=== PATIENT | female | born 1975 | race Caucasian/White ===

== ENCOUNTER → 2019-09-20 | Outpatient (CLI) | payer MEDICAID | LOC: LL.US 14:56 | PROVIDERS: ATTEND Physician Assistant | DX: E28.2 Polycystic ovarian syndrome (principal); Z90.710 Acquired absence of both cervix and uterus | CPT/HCPCS: 76830; 76856 ==

== ENCOUNTER 2019-11-16 02:20 | Emergency (ER) | payer MEDICAID ==
[2019-11-16] MEDS ORDERED: Famotidine 20 MG/2 ML SDV IVPUSH ONE (02:27)
[2019-11-16] MEDS ORDERED: Sodium Chloride 0.9% 10 ML Syringe FLUSH PRN (02:27)
--- NOTE | 2019-11-16 02:27 | EDM.PDOC ---
ED HPI GENERAL MEDICAL PROBLEM - General Chief Complaint: Neurological Problem Stated Complaint: FACIAL DROOP, SLURRED SPEECH Time Seen by Provider: 11/16/19 02:26 Source of Information: Reports: Patient, EMS, Old Records ([facility] EMR. No paper hospital chart available.), Other ([facility] EMR). Denies : EMS Notes Reviewed (Not available at time of dictation) History Limitations: Reports: Other (Altered speech) - History of Present Illness INITIAL COMMENTS - FREE TEXT/NARRATIVE: The patient was brought to the emergency room via ambulance with hogshead mat assembler accompaniment with a stroke code called by the hogshead mat assembler shortly prior to the patient's arrival to this facility. She is a somewhat poor historian secondary to her speech deficit. Note that at about 01:30 hours this evening the patient had a sudden onset 9/10 right sided occipital headache associated with right facial numbness, paresthesias, and right facial hemiparesis associated with 9/ 10 right superior lip discomfort. The patient did have a right occipital nerve block at [facility] on 11/15 with no immediate complications from that procedure. Patient does have stable chronic diplopia by her history with no other visual changes or previous aura. The patient was evaluated at [facility] on 11/15 with positive EEG in the right frontotemporal region. No previous seizure activity prior to her arrival to our facility, however. The patient denies any chest pain/pressure, heart flutter, dizziness, orthostasis, orthopnea, diaphoresis, recent decreased exercise tolerance, or any other anginal-type symptoms. No recent history of abdominal pain, heartburn, nausea, diarrhea, melena, gross hematochezia, or any food intolerance, including fatty foods, etc.. The patient also denies any recent fever, wheezing, dyspnea, etc., although she has had some mild nasal drainage and URI symptoms during the last couple of days. Onset: Today, Sudden Onset Date: 11/16/19 Onset Time: 01:30 Duration: Improving Location: Reports: Head (As above), Face (As above). Denies: Neck, Chest, Abdomen, Back, Upper Extremity, Left, Upper Extremity, Right, Radiates to Quality: Reports: Same as Previous Episode, Throbbing Improves with: Reports: None Worsens with: Reports: None Context: Reports: Other (As above). Denies: Sick Contact, Trauma Associated Symptoms: Reports: Cough, Headaches, Weakness (Right facial). Denies : Confusion, Chest Pain, cough w sputum, Diaphoresis, Fever/Chills, Loss of Appetite, Malaise, Nausea/Vomiting, Seizure, Shortness of Breath, Syncope Treatments TOURIST GUIDE: Reports: Other (see below) (None) - Related Data Allergies Allergy/AdvReac Type Severity Reaction Status Date / Time acetaminophen Allergy Cannot Verified 11/16/19 02:52 Remember adhesive Allergy Cannot Verified 11/16/19 02:52 Remember adhesive tape Allergy Cannot Verified 11/16/19 02:52 Remember amoxicillin Allergy Cannot Verified 11/16/19 02:52 Remember bupropion Allergy Cannot Verified 11/16/19 02:52 Remember cephalexin [From Keflex] Allergy Cannot Verified 11/16/19 02:52 Remember ciprofloxacin Allergy Cannot Verified 03/04/19 23:03 Remember doxycycline Allergy Cannot Verified 03/04/19 23:03 Remember gabapentin [From Neurontin] Allergy Cannot Verified 11/16/19 02:52 Remember hydrocodone Allergy Cannot Verified 11/16/19 02:52 Remember ibuprofen Allergy Cannot Verified 11/16/19 02:52 Remember oxycodone [From Percocet] Allergy Cannot Verified 11/16/19 02:52 Remember parsley Allergy Cannot Verified 11/16/19 02:52 Remember peanut Allergy Cannot Verified 11/16/19 02:52 Remember silver Allergy Hives Verified 11/16/19 02:52 [From Tegaderm AG Mesh] tizanidine Allergy Cannot Verified 11/16/19 02:52 Remember tramadol Allergy Cannot Verified 11/16/19 02:52 Remember Home Meds: Home Meds Ipratropium [Atrovent HFA] 1 puff INH Q4H PRN 02/20/19 [History] Levothyroxine [Synthroid] 88 mcg PO DAILY 02/20/19 [History] Topiramate 200 mg PO DAILY 02/20/19 [History] Verapamil [Calan] 80 mg PO BID 02/20/19 [History] Albuterol Sulfate 2.5 mg IH Q4H PRN 11/16/19 [History] Hydrocortisone [Cortef] 5 mg PO DAILY 11/16/19 [History] Spironolactone 50 mg PO DAILY 11/16/19 [History] Venlafaxine HCl [Venlafaxine HCl ER] 225 mg PO DAILY 11/16/19 [History] cycloSPORINE [Restasis] 1 each OP BID 11/16/19 [History] hydrOXYzine HCL [Hydroxyzine HCl] 25 mg PO Q6HR PRN 11/16/19 [History] metFORMIN HCl [Metformin HCl ER] 500 mg PO DAILY 11/16/19 [History] Past Medical History HEENT History: Reports: Impaired Vision, Other (See Below) Other HEENT History: 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 as below. She does wear glasses. Dry eye syndrome. Cardiovascular History: Reports: Arrhythmia, Other (See Below) Other Cardiovascular History: Evidence of possible anterolateral cardiac ischemia by EKG with no known previous MA. Sinus tachycardia. History of nonspecific congenital cardiac malformations? Respiratory History: Reports: Asthma, Intubation, Previous. Denies: Intubation , Difficult Gastrointestinal History: Reports: GERD Genitourinary History: Reports: None TOBACCO PREVENTION HEALTH EDUCATOR History: Reports: Polycystic Ovaries LMP (Approximate): Other (See Below) Other TOBACCO PREVENTION HEALTH EDUCATOR History: Surgical menopause. Musculoskeletal History: Reports: Arthritis, Back Pain, Chronic, Neck Pain, Chronic, Osteoarthritis Neurological History: Reports: Concussion, Head Trauma, Migraines, Seizure, Other (See Below). Denies: CVA, TIA Other Neuro History: Right occipital AV malformation with [place]nife therapy as below. History of previous positive migraine equivalent versus psychogenic nonepileptic seizure disorder, however positive EEG on for right frontotemporal focus. Previous traumatic brain injuries 3. Psychiatric History: Reports: Anxiety, Depression, Other (See Below) Other Psychiatric History: Conversion disorder. 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 Denies: Diabetes, Type I, Diabetes Mellitus, Type 3c, IDDM Other Endocrine/Metabolic History: Prediabetes. 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 Adrenal insufficiency. Hypoalbuminemia. Hematologic History: Reports: Other (See Below). Denies: Anemia Other Hematologic History: Macrocytosis. Immunologic History: Reports: None Oncologic (Cancer) History: Reports: None Dermatologic History: Reports: None - Infectious Disease History Infectious Disease History: Reports: None - Past Surgical History Head Surgeries/Procedures: Reports: Craniotomy, Shunt Other Head Surgeries/Procedures: Previous gamma knife surgery for right occipital AVM with possible previous shunt placement. HEENT Surgical History: Reports: Adenoidectomy, Tonsillectomy, Other (See Below) Other HEENT Surgeries/Procedures: Right eye trochlear Kenalog Injection on . GI Surgical History: Reports: Colonoscopy, EGD, Other (See Below) Other GI Surgeries/Procedures: Normal EGD and colonoscopy on 03/27/19. Female Surgical History: Reports: Hysterectomy, Other (See Below) Other Female Surgeries/Procedures: Colposcopy with endometrial biopsy on 06/26. Neurological Surgical History: Reports: Other (See Below) Other Neurological Surgeries/Procedures: Gamma knife procedure as above. - Past Imaging History Past Imaging History: Reports: CAT Scan (CT of the head on 08/25/19 and 03/05/19. ), EEG (Positive EEG as above 11/14/19.), Mammogram (Last mammogram on 06/11/19), MRA (Brain on 03/05/19), MRI, Ultrasound (Pelvic ultrasound on 09/20/19. Right Breast ultrasound on 06/11/19 and 01/02/07.) - History Comment History Comment: Very complex medical situation with minimal records provided for continuity of care Social & Family History - Tobacco Use Smoking Status *Q: Never Smoker Tobacco Use Within Last Twelve Months: No Used Tobacco, but Quit: No Smoking Cessation Information Provided To Patient: No Second Hand Smoke Exposure: No Second Hand Smoke Education Provided: No - Caffeine Use Caffeine Use: Reports: Coffee - Recreational Drug Use Recreational Drug Use: No Drug Use in Last 12 Months: No - Living Situation & Occupation Living situation: Reports: Extended Care Facility ([facility]) Occupation: Disabled ED ROS GENERAL - Review of Systems Review Of Systems: Comprehensive ROS is negative, except as noted in HPI. ED EXAM, NEURO - Physical Exam Exam: See Below Exam Limited By: No Limitations General Appearance: Alert, WD/WN, No Apparent Distress, Anxious (Moderate). No : Lethargic Eye Exam: Bilateral Eye: EOMI, Normal Fundi, Normal Inspection (No nystagmus), PERRL, Vision Changes (Stable diplopia by patient history) Ears: Normal External Exam, Normal Canal, Hearing Grossly Normal, Normal TMs Nose: Normal Inspection, Normal Mucosa, No Blood Throat/Mouth: Normal Inspection, Normal Lips, Normal Teeth, Normal Gums, Normal Oropharynx, Normal Voice, No Airway Compromise. No: Dysphagia, Perioral Cyanosis Head Exam: Atraumatic, Normocephalic. No: Facial Swelling, Facial Tenderness, Sinus Tenderness Neck: Normal Inspection, Supple, Non-Tender, Full Range of Motion. No: Carotid Bruit, Lymphadenopathy (L), Lymphadenopathy (R), Thyromegaly Respiratory/Chest: No Respiratory Distress, Lungs Clear, Normal Breath Sounds, No Accessory Muscle Use, Chest Non-Tender. No: Pleural Rub, Retractions Cardiovascular: Normal Peripheral Pulses, Regular Rate, Rhythm, No Edema, No Gallop, No JVD, No Murmur, No Rub. No: Gallop/S3, Gallop/S4, Friction Rub GI/Abdominal: Normal Bowel Sounds, Soft, Non-Tender, No Organomegaly, No Distention, No Abnormal Bruit, No Mass, Pelvis Stable, Other (Obese). No: Guarding (Female) Exam: Deferred Rectal (Female) Exam: Deferred Neurological: Alert, Normal Dorsiflexion, Normal Plantar Flexion, Oriented x 3, Tremor (Moderate bilateral), Difficulty Walking, Other (Moderate to severe initial difficulty with initiating speech with some slurring and problems with tongue and right facial movement/hemiparesis). No: Abnormal Finger to Nose, Babinski Back Exam: Normal Inspection, Full Range of Motion. No: CVA Tenderness (L), CVA Tenderness (R), Muscle Spasm Extremities: Normal Inspection, Normal Range of Motion, Non-Tender, No Pedal Edema, Normal Capillary Refill. No: Ronda's Sign Psychiatric: Anxious (Moderate), Depressed Mood (I'll to moderate) Skin Exam: Warm, Dry, Intact, Normal Color, No Rash. No: Diaphoretic, Wound/ Incision EKG INTERPRETATION EKG Date: 11/16/19 Time: 02:37 Rhythm: NSR Rate (Beats/Min): 87 [place]: Normal (Left) P-Wave: Present (Diffuse biphasic P wavesmild) QRS: Normal (0.07 seconds) ST-T: Other (Stable T-wave inversions in leads V1 through V4 but otherwise nonspecific ST changes since last EKG on 11/13/19) QT: Normal CA/PQ Interval: 0.14 seconds representing a stable short CA interval with no delta waves noted. Poor R-wave progression in the anterior leads. Comparison: No Change (Last EKG on 11/13/19) EKG Interpretation Comments: 1. Possible anterolateral cardiac ischemia 2. Short CA interval Course - Vital Signs Last Recorded V/S: See E-med report Vital Signs - 24 hr 11/16/19 11/16/19 03:18 03:35 Pulse, 90 88 Peripheral [ Pulse Oximetry] Respiratory 18 14 Rate Blood Pressure 100/70 98/70 [Left Upper Arm ] O2 Sat by Pulse 94 L 94 L Oximetry - Orders/Labs/Meds Orders: Active Orders 24 hr Category Date Time Status Blood Glucose Check, Bedside [RC] STAT Care 11/16/19 02:27 Active Cardiac Monitoring [RC] STAT Care 11/16/19 02:27 Active EKG Documentation Completion [RC] ASDIRECTED Care 11/16/19 02:27 Active NIH Stroke Scale [RC] ASDIRECTED Care 11/16/19 02:27 Active Oxygen Therapy, ED [RC] CONTINUOUS Care 11/16/19 02:27 Active Peripheral IV Care [RC] . DIRECTED Care 11/16/19 02:27 Active Pulse Oximetry [RC] CONTINUOUS Care 11/16/19 02:27 Active Up With Assistance [RC] ASDIRECTED Care 11/16/19 02:27 Active Vital Signs [RC] PFP Care 11/16/19 02:27 Active Nothing per Oral Now Diet [DIET] Diet 11/16/19 Breakfast Active Chest 1V Frontal [CR] Stat Exams 11/16/19 02:27 Taken Head wo Cont [CT] Stat Exams 11/16/19 02:27 Taken PROLACTIN [REF] Stat Lab 11/16/19 02:34 Received UA W/MICROSCOPIC [URIN] Stat Lab 11/16/19 02:27 Stop Req Sodium Chloride 0.9% [Saline Flush] Med 11/16/19 02:27 Active 10 ml FLUSH ASDIRECTED PRN Obtain Past Medical Record [OM.PC] Stat Oth 11/16/19 02:27 Active Peripheral IV Insertion Adult [OM.PC] Stat Oth 11/16/19 02:27 Ordered Resuscitation Status Stat Resus Stat 11/16/19 02:27 Ordered EKG 12 Lead [EK] Stat Ther 11/16/19 02:27 Ordered Medication Orders Sodium Chloride (Saline Flush) 10 ml FLUSH ASDIRECTED PRN PRN Reason: Keep Vein Open Last Admin: 11/16/19 03:11 Dose: 10 ml Labs: Laboratory Tests 11/16/19 11/16/19 11/16/19 Range/Units 02:34 02:34 02:34 WBC 9.2 (4.0-10.2) K/uL RBC 4.12 (3.77-5.09) M/uL Hgb 13.1 (11.7-15.5) g/dL Hct 39.7 (34.0-46.0) % MCV 96.4 (84.0-98.0) fL MCH 31.8 (28.2-33.3) pg MCHC 33.0 (31.7-36.0) g/dL RDW 12.4 (11.2-14.1) % Plt Count 189 (150-350) K/uL Neut % (Auto) 55.5 (45.0-80.0) % Lymph % (Auto) 31.4 (10.0-50.0) % [place] % (Auto) 12.0 (2.0-14.0) % Eos % (Auto) 0.9 (0.0-5.0) % Baso % (Auto) 0.2 (0.0-2.0) % Neut # (Auto) 5.13 (1.40-7.00) K/uL Lymph # (Auto) 2.90 (0.50-3.50) K/uL [place] # (Auto) 1.11 H (0.00-1.00) K/uL Eos # (Auto) 0.08 (0.00-0.50) K/uL Baso # (Auto) 0.02 (0.00-0.20) K/uL PT 9.8 (9.5-12.0) SEC INR 0.9 APTT 26.4 (21.0-31.3) SEC D-Dimer, Quantitative < 100 (0-400) ng/mL Sodium (136-145) mmol/L Potassium (3.5-5.1) mmol/L Chloride (98-107) mmol/L Carbon Dioxide (21.0-32.0) mmol/L BUN (7-18) mg/dL Creatinine (0.51-1.17) mg/dL Est Cr Clr Drug Dosing Estimated GFR (MDRD) mL/min Glucose (74-106) mg/dL Lactic Acid (0.4-2.0) mmol/L Uric Acid (2.6-7.2) mg/dL Calcium (8.5-10.1) mg/dL Magnesium (1.8-2.4) mg/dL Total Bilirubin (0.2-1.0) mg/dL AST (15-37) U/L ALT (12-78) U/L Alkaline Phosphatase (46-116) IU/L Creatine Kinase (26-308) U/L Creatine Kinase Index (0.0-2.5) % CK-MB (CK-2) (0.00-3.60) ng/mL Troponin I (0.000-0.056) ng/mL NT-Pro-B Natriuret Pep (0-125) pg/mL Total Protein (6.4-8.2) g/dL Albumin (3.4-5.0) g/dL TSH, Ultra Sensitive (0.358-3.740) mIU/mL 11/16/19 11/16/19 Range/Units 02:34 02:34 WBC (4.0-10.2) K/uL RBC (3.77-5.09) M/uL Hgb (11.7-15.5) g/dL Hct (34.0-46.0) % MCV (84.0-98.0) fL MCH (28.2-33.3) pg MCHC (31.7-36.0) g/dL RDW (11.2-14.1) % Plt Count (150-350) K/uL Neut % (Auto) (45.0-80.0) % Lymph % (Auto) (10.0-50.0) % [place] % (Auto) (2.0-14.0) % Eos % (Auto) (0.0-5.0) % Baso % (Auto) (0.0-2.0) % Neut # (Auto) (1.40-7.00) K/uL Lymph # (Auto) (0.50-3.50) K/uL [place] # (Auto) (0.00-1.00) K/uL Eos # (Auto) (0.00-0.50) K/uL Baso # (Auto) (0.00-0.20) K/uL PT (9.5-12.0) SEC INR APTT (21.0-31.3) SEC D-Dimer, Quantitative (0-400) ng/mL Sodium 140 (136-145) mmol/L Potassium 3.9 (3.5-5.1) mmol/L Chloride 107 (98-107) mmol/L Carbon Dioxide 24.9 (21.0-32.0) mmol/L BUN 16 (7-18) mg/dL Creatinine 0.96 (0.51-1.17) mg/dL Est Cr Clr Drug Dosing TNP Estimated GFR (MDRD) > 60 mL/min Glucose 89 (74-106) mg/dL Lactic Acid 0.8 (0.4-2.0) mmol/L Uric Acid 4.9 (2.6-7.2) mg/dL Calcium 8.5 (8.5-10.1) mg/dL Magnesium 1.9 (1.8-2.4) mg/dL Total Bilirubin 0.2 (0.2-1.0) mg/dL AST 36 (15-37) U/L ALT 56 (12-78) U/L Alkaline Phosphatase 69 (46-116) IU/L Creatine Kinase 45 (26-308) U/L Creatine Kinase Index 0.7 (0.0-2.5) % CK-MB (CK-2) 0.30 (0.00-3.60) ng/mL Troponin I 0.000 (0.000-0.056) ng/mL NT-Pro-B Natriuret Pep 39 (0-125) pg/mL Total Protein 6.6 (6.4-8.2) g/dL Albumin 3.1 L (3.4-5.0) g/dL TSH, Ultra Sensitive 15.348 H (0.358-3.740) mIU/mL Prolactin level drawn with results pending Meds: Medications Generic Name Dose Route Start Last Admin Trade Name Freq PRN Reason Stop Dose Admin Sodium Chloride 10 ml 11/16/19 02:27 11/16/19 03:11 Saline Flush FLUSH 10 ml ASDIRECTED PRN Administration Keep Vein Open Discontinued Medications Generic Name Dose Route Start Last Admin Trade Name Freq PRN Reason Stop Dose Admin Aspirin 300 mg 11/16/19 03:28 11/16/19 03:47 Aspirin RECTAL 11/16/19 03:29 300 mg ONETIME ONE Administration Diazepam 2.5 mg 11/16/19 02:56 11/16/19 02:59 Valium IVPUSH 11/16/19 02:57 2.5 mg ONETIME ONE Administration Famotidine 40 mg 11/16/19 02:27 11/16/19 03:04 Pepcid IVPUSH 11/16/19 02:28 40 mg ONETIME ONE Administration - Radiology Interpretation Free Text/Narrative:: equipment monitor phototypesetting showed normal sinus rhythm in the 80s to 90s with mild sinus tachycardia in the 100s at time of seizure with no other ectopy or arrhythmia Chest x-ray, portable, showed no evidence of cardiomegaly with nonspecific right middle lobe atelectasis but no pneumothorax, pulmonary infiltrates, etc. Telephone consultation at 02:46 hours with the radiology department at [facility] with preliminary verbal report of noncontrast CT scan of the head. Stable findings since last CT scan on 08/25/19 with no acute findings. Stable 15 mm hyperdense lesion in the inferior occipital temporal lobe on the right with stable vasogenic edema. CT Results Date: 11/16/19 CT Results Time: 02:46 Departure - Departure Time of Disposition: 04:10 Disposition: DC/Tfer to Acute Hospital 02 Condition: Fair Clinical Impression: Seizure disorder, AVM (arteriovenous malformation) brain, History of closed head injury, Hypothyroidism (acquired), Addisons disease, Heart disease, Asthma , Peptic reflux disease, Mixed anxiety depressive disorder, Facial paresis, Hypoalbuminemia Migraine headache Qualifiers: Migraine type: without aura Status migrainosus presence: without status migrainosus Intractability: not intractable Qualified Code(s): G43.009 - Migraine without aura, not intractable, without status migrainosus - Discharge Information *PRESCRIPTION DRUG MONITORING PROGRAM REVIEWED*: Not Applicable *COPY OF PRESCRIPTION DRUG MONITORING REPORT IN PATIENT MAURICE: Not Applicable Referrals: Princess Luz MD [Primary Care Provider] - Forms: ED Department Discharge, Interfacility Transfer KERLINE Sepsis Event Note - Focused Exam Date Exam was Performed: 11/16/19 Time Exam was Performed: 04:09 - Problem List & Annotations (1) Facial paresis SNOMED Code(s): 81980605 Code(s): 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 on 11/15. Stroke code was called by paramedics prior to arrival to this facility, which was continued per our protocol. [employer] was notified to help us with documentation , and they did notify [facility] at 02:42 hours concerning our stroke code. Telephone consultation at 03:[address] Menchaca, stroke neurologist at [facility], who does not feel that this is a true CVA, however he does agree with the need for further referral to their emergency room for probable MRI of the brain. He does agree to notify the ER physician for me and does not have any further treatment recommendations. Patient was given 300 mg of aspirin rectally prior to transfer. Ambulance transfer with hogshead mat assembler accompaniment. (2) Seizure disorder SNOMED Code(s): 878394723 Code(s): G40.909 - EPILEPSY, UNSP, NOT INTRACTABLE, WITHOUT STATUS EPILEPTICUS Status: Chronic Priority: High Annotation/Comment:: Note right -sided Jacksonian seizure with no postictal sedation did occur during emergency room care with seizure activity lasting for about 12 minutes and excellent response with 2.5 mg of IV diazepam. Note recent positive EEG as above. She is currently not on any antiseizure medications, although she has been on antiepileptics in the past. (3) Migraine headache SNOMED Code(s): 40105860 Code(s): G43.909 - MIGRAINE, UNSP, NOT INTRACTABLE, WITHOUT STATUS MIGRAINOSUS Status: Acute Priority: High Annotation/Comment:: Possible migraine equivalent component to patient's symptoms today. Continue to observe closely by accepting providers. Qualifiers: Migraine type: without aura Status migrainosus presence: without status migrainosus Intractability: not intractable Qualified Code(s): G43.009 - Migraine without aura, not intractable, without status migrainosus (4) Hypothyroidism (acquired) SNOMED Code(s): 808785377 Code(s): E03.9 - HYPOTHYROIDISM, UNSPECIFIED Status: Chronic Priority: High Annotation/Comment:: No significantly elevated TSH. Thyroid supplementation should be increased by accepting providers with repeat TSH recommended in 4 weeks. (5) AVM (arteriovenous malformation) brain SNOMED Code(s): 889062699 Code(s): Q28.2 - ARTERIOVENOUS MALFORMATION OF CEREBRAL VESSELS Status: Chronic Priority: Medium Annotation/Comment:: Previous gamma knife therapy as above with additional history of traumatic brain injuries 3 as above (6) History of closed head injury SNOMED Code(s): 60331246269722 Code(s): Z87.820 - PERSONAL HISTORY OF TRAUMATIC BRAIN INJURY Status: Chronic Priority: High Annotation/Comment:: As above (7) Addisons disease SNOMED Code(s): 085863928 Code(s): E27.1 - PRIMARY ADRENOCORTICAL INSUFFICIENCY Status: Chronic Priority: Medium Annotation/Comment:: Stable by history with no recent fever or signs of significant infection. (8) Asthma SNOMED Code(s): 177672096 Code(s): J45.909 - UNSPECIFIED ASTHMA, UNCOMPLICATED Status: Chronic Priority: Medium Annotation/Comment:: No recent fever or bronchitic type symptoms. Qualifiers: Asthma severity: mild Asthma persistence: intermittent Asthma complication type: uncomplicated Qualified Code(s): J45.20 - Mild intermittent asthma, uncomplicated (9) Heart disease SNOMED Code(s): 07684515 Code(s): I51.9 - HEART DISEASE, UNSPECIFIED Status: Acute Priority: High Annotation/Comment:: Unknown type of previous congenital heart disease. Note stable anterolateral cardiac ischemia today's EKG as above with otherwise normal cardiac enzymes and no chest pain or anginal type symptoms. (10) Mixed anxiety depressive disorder SNOMED Code(s): 308426495 Code(s): F41.8 - OTHER SPECIFIED ANXIETY DISORDERS Status: Chronic Priority: Medium Annotation/Comment:: Moderate control during today's evaluation with current medical therapy. Consider medication adjustments by accepting and regular providers. (11) Peptic reflux disease SNOMED Code(s): 504358598 Code(s): K21.9 - GASTRO-ESOPHAGEAL REFLUX DISEASE WITHOUT ESOPHAGITIS Status: Chronic Priority: Medium Annotation/Comment:: Stable by history (12) Hypoalbuminemia SNOMED Code(s): 178319072 Code(s): E88.09 - OTH DISORDERS OF PLASMA-PROTEIN METABOLISM, NEC Status: Chronic Priority: Medium Annotation/Comment:: Previously known. Observe for now - Problem List Review Problem List Initiated/Reviewed/Updated: Yes - My Orders Last 24 Hours: My Active Orders 11/16/19 02:27 Blood Glucose Check, Bedside [RC] STAT Cardiac Monitoring [RC] STAT EKG Documentation Completion [RC] ASDIRECTED NIH Stroke Scale [RC] ASDIRECTED Oxygen Therapy, ED [RC] CONTINUOUS Peripheral IV Care [RC] . DIRECTED Pulse Oximetry [RC] CONTINUOUS Up With Assistance [RC] ASDIRECTED Vital Signs [RC] PFP Chest 1V Frontal [CR] Stat Head wo Cont [CT] Stat UA W/MICROSCOPIC [URIN] Stat Sodium Chloride 0.9% [Saline Flush] 10 ml FLUSH ASDIRECTED PRN Obtain Past Medical Record [OM.PC] Stat Peripheral IV Insertion Adult [OM.PC] Stat Resuscitation Status Stat EKG 12 Lead [EK] Stat 11/16/19 02:34 PROLACTIN [REF] Stat 11/16/19 Breakfast Nothing per Oral Now Diet [DIET] - Assessment/Plan Last 24 Hours: My Active Orders 11/16/19 02:27 Blood Glucose Check, Bedside [RC] STAT Cardiac Monitoring [RC] STAT EKG Documentation Completion [RC] ASDIRECTED NIH Stroke Scale [RC] ASDIRECTED Oxygen Therapy, ED [RC] CONTINUOUS Peripheral IV Care [RC] . DIRECTED Pulse Oximetry [RC] CONTINUOUS Up With Assistance [RC] ASDIRECTED Vital Signs [RC] PFP Chest 1V Frontal [CR] Stat Head wo Cont [CT] Stat UA W/MICROSCOPIC [URIN] Stat Sodium Chloride 0.9% [Saline Flush] 10 ml FLUSH ASDIRECTED PRN Obtain Past Medical Record [OM.PC] Stat Peripheral IV Insertion Adult [OM.PC] Stat Resuscitation Status Stat EKG 12 Lead [EK] Stat 11/16/19 02:34 PROLACTIN [REF] Stat 11/16/19 Breakfast Nothing per Oral Now Diet [DIET] Assessment:: As above Plan: As above. Extensive precautions were given to the patient, who is in agreement with the treatment plan. 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
[2019-11-16 03:07] LABS: CHLORIDE,CL 107 mmol/L (98-107); SODIUM,NA 140 mmol/L (136-145)
[2019-11-16] MEDS ORDERED: Aspirin 300 MG Supp RECTAL ONE (03:28)
== END 2019-11-16 04:10 ==
LOC: LL.ED 02:20
DX: G51.0 Bell's palsy (principal); G43.009 Migraine without aura, not intractable, without status migrainosus; G40.909 Epilepsy, unspecified, not intractable, without status epilepticus; J45.909 Unspecified asthma, uncomplicated; K30 Functional dyspepsia; E88.09 Other disorders of plasma-protein metabolism, not elsewhere classified; E03.9 Hypothyroidism, unspecified; E27.1 Primary adrenocortical insufficiency; F41.8 Other specified anxiety disorders; I51.9 Heart disease, unspecified; Q28.2 Arteriovenous malformation of cerebral vessels; M19.90 Unspecified osteoarthritis, unspecified site; E11.9 Type 2 diabetes mellitus without complications; Z88.8 Allergy status to other drugs, medicaments and biological substances; Z91.048 Other nonmedicinal substance allergy status; Z88.1 Allergy status to other antibiotic agents; Z88.5 Allergy status to narcotic agent; Z91.010 Allergy to peanuts; Z79.899 Other long term (current) drug therapy; Z79.84 Long term (current) use of oral hypoglycemic drugs
CPT/HCPCS: 36415; 70450; 71045; 80053; 82550; 82553; 83605; 83735; 83880; 84146; 84443; 84484; 84550; 85025; 85379; 85610; 85730; 93005; 96374; 96375; 99285-25; A9270-GY; J3360; J3490

== ENCOUNTER 2020-03-19 18:15 | Emergency (ER) | payer MEDICAID ==
[2020-03-19 18:48] LABS: CHLORIDE,CL 108 mmol/L (98-107); SODIUM,NA 140 mmol/L (136-145)
[2020-03-19] MEDS: Ondansetron 4 MG/2 ML SDV IVPUSH ONE (18:57)
[2020-03-19] MEDS: fentaNYL 100 MCG/2 ML SDV IVPUSH ONE (19:02)
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
[2020-03-19] MEDS: levETIRAcetam 500 MG in Sodium Chloride 0.9% 100 ML IV ONE (19:38)
[2020-03-19] MEDS: Diazepam 5 MG Tab PO ONE (19:38)
== END 2020-03-19 21:40 ==
LOC: LL.ED 18:15
DX: F44.4 Conversion disorder with motor symptom or deficit (principal); R47.01 Aphasia; J45.909 Unspecified asthma, uncomplicated; F41.9 Anxiety disorder, unspecified; F32.9 Major depressive disorder, single episode, unspecified; E11.9 Type 2 diabetes mellitus without complications; E03.9 Hypothyroidism, unspecified; E66.9 Obesity, unspecified; Z88.6 Allergy status to analgesic agent; Z91.048 Other nonmedicinal substance allergy status; Z88.1 Allergy status to other antibiotic agents; Z88.5 Allergy status to narcotic agent; Z91.010 Allergy to peanuts; Z88.8 Allergy status to other drugs, medicaments and biological substances; Z79.84 Long term (current) use of oral hypoglycemic drugs; Z79.899 Other long term (current) drug therapy
CPT/HCPCS: 36415; 70450; 80053; 80177; 81001; 82550; 82553; 83735; 83880; 84146; 84484; 85025; 85379; 85610; 85730; 96365; 96375; 99285-25; A9270-GY; J1953; J2405; J3010; J7050